=== PATIENT | female | born 1950 | race Caucasian/White ===

== ENCOUNTER 2018-08-14 11:41 | Day surgery (SDC) | payer MEDICARE, OTHER ==
[~2018-08-14] VITALS: Ht 154.9 cm; Wt 42.6 kg
[2018-08-14] MEDS ORDERED: PROAIR RESPICL90 MCG (13:20)
[2018-08-14] MEDS ORDERED: FLUT1DIS2 (13:20)
[2018-08-14] MEDS ORDERED: VITAMIN D31000 UNIT (13:21)
[2018-08-14] MEDS ORDERED: [UNRECOGNIZED DRUG - OTHER] (13:21)
[2018-08-14] MEDS ORDERED: ALEN70 (13:21)
[2018-08-14] MEDS ORDERED: Super Calcium600 MG (13:22)
[2018-08-14] MEDS ORDERED: Fish Oil 10001000 MG (13:23)
[2018-08-14] MEDS ORDERED: CALCIUM-MAGNES1 EAC2 (13:23)
[2018-08-14] MEDS ORDERED: IBUP400 (13:23)
[2018-08-14] MEDS ORDERED: Super B Comple150 MG (13:24)
[2018-08-14] MEDS ORDERED: SUDOGEST SINUS1 EACH (13:24)
== END 2018-08-14 15:50 | disposition home or self-care (01) ==
LOC: ORSCSDS 11:41
PROVIDERS: Internal Medicine Gastroenterology
PROC: 0DBM8ZX Excision of Descending Colon, Via Natural or Artificial Opening Endoscopic, Diagnostic (ICD-10-PCS; principal; 2018-08-14 14:30)
DX: Z12.11 Encounter for screening for malignant neoplasm of colon (principal); D12.4 Benign neoplasm of descending colon; K57.30 Diverticulosis of large intestine without perforation or abscess without bleeding
CPT/HCPCS: J7120